=== PATIENT | female | born 1960 | race Caucasian/White ===

== ENCOUNTER 2017-02-28 11:11 | Inpatient (IN) | payer SELFPAY ==
[~2017-02-28] VITALS: Ht 167.6 cm; Wt 91.8 kg
[2017-02-28 12:11] LABS: CALCIUM 9.4 mg/dL (8.5-10.1); CARBON DIOXIDE 25.6 mmol/L (21-32); CREATININE SERUM 1.2 mg/dL (0.6-1.0); POTASSIUM SERUM 4.2 mmol/L (3.5-5.1)
[2017-02-28 12:15] LABS: ALBUMIN 3.8 g/dL (3.4-5.0); BILIRUBIN TOTAL 0.79 mg/dL (0.20-1.00); TOTAL PROTEIN, SERUM 7.6 g/dL (6.4-8.2)
[2017-02-28 12:29] LABS: BASOPHIL % 0.4 % (0-2); PLATELET COUNT 184 x10^3mcL (130-400); RED CELL DISTRIBUTION WIDTH 13.1 % (11.5-14.5)
[2017-02-28 14:54] LABS: MAGNESIUM 2.3 mg/dL (1.8-2.4)
[2017-02-28 14:56] LABS: CHOLESTEROL/HDL RATIO 2.5
[2017-02-28 15:03] LABS: T3 TOTAL 1.21 ng/mL
[2017-02-28 15:08] LABS: FREE T4 0.86 ng/dL (0.76-1.46); FREE THYROXINE INDEX 2.5 ug/dL (1.4-4.5); T4(THYROXINE) 7.8 ug/dL (4.7-13.3)
[2017-02-28 16:05] VITALS: BP 125/74
[2017-02-28 17:33] LABS: microscopic required? YES; urine erythrocyte 1+ (NEGATIVE)
[2017-02-28 17:49] LABS: AMPHETAMINE QUAL UR NONE DETECTED (NEG <=1000)
[2017-02-28] MEDS ORDERED: HCTZ/LISINOPRIL1 TAB PO (17:53)
[2017-02-28] MEDS ORDERED: SIMVASTATIN20 M1 PO (17:53)
[2017-02-28 20:43] VITALS: BP 111/62
[2017-03-01 05:38] VITALS: BP 103/73
[2017-03-01 06:30] LABS: CARBON DIOXIDE 26.8 mmol/L (21-32); CHLORIDE SERUM 108 mmol/L (98-107); CREATININE SERUM 0.8 mg/dL (0.6-1.0); GFR1 > 60 mL/min; GLUCOSE SERUM 91 mg/dL (74-106); POTASSIUM SERUM 3.6 mmol/L (3.5-5.1); SODIUM SERUM 142 mmol/L (136-145)
[2017-03-01 06:37] LABS: PLATELET COUNT 141 x10^3mcL (130-400); RED CELL DISTRIBUTION WIDTH 13.4 % (11.5-14.5)
[2017-03-01 06:57] LABS: BASOPHIL % 0 % (0-2)
[2017-03-01 09:21] VITALS: BP 110/59
[2017-03-01 13:56] VITALS: BP 122/61
[2017-03-01 17:09] VITALS: BP 107/57
[2017-03-01 19:30] VITALS: BP 104/62
[2017-03-02 06:32] VITALS: BP 114/67
[2017-03-02 06:33] VITALS: BP 114/67
[2017-03-02 09:31] VITALS: BP 116/60
[2017-03-02] MEDS ORDERED: ASPIR 8181 MG PO ×2 (11:18→12:26)
[2017-03-02 11:44] VITALS: BP 116/60
== END 2017-03-02 13:45 | disposition home or self-care (01) | DRG 393 ==
LOC: ED 11:11 → DU 13:52 → MU 03-02 06:57
PROVIDERS: Emergency Medicine; Internal Medicine Gastroenterology; ADMIT Family Medicine
PROC: 0DB78ZX Excision of Stomach, Pylorus, Via Natural or Artificial Opening Endoscopic, Diagnostic (ICD-10-PCS; principal; 2017-03-01 14:00)
PROC: 0DBG8ZX Excision of Left Large Intestine, Via Natural or Artificial Opening Endoscopic, Diagnostic (ICD-10-PCS; 2017-03-01 14:00)
DX: K55.9 Vascular disorder of intestine, unspecified (principal); N17.0 Acute kidney failure with tubular necrosis; E87.2 Acidosis; I10 Essential (primary) hypertension; E78.00 Pure hypercholesterolemia, unspecified; R19.09 Other intra-abdominal and pelvic swelling, mass and lump; Z53.29 Procedure and treatment not carried out because of patient's decision for other reasons; E66.9 Obesity, unspecified; D25.9 Leiomyoma of uterus, unspecified; K76.89 Other specified diseases of liver; E78.5 Hyperlipidemia, unspecified; Z90.49 Acquired absence of other specified parts of digestive tract; Z88.1 Allergy status to other antibiotic agents; Z90.89 Acquired absence of other organs; Z79.899 Other long term (current) drug therapy; Z83.3 Family history of diabetes mellitus; Z82.49 Family history of ischemic heart disease and other diseases of the circulatory system; Z80.9 Family history of malignant neoplasm, unspecified
CPT/HCPCS: 43235; 45378; 80307; 83880; 84439; 87046; 87046-59; J1200; J1610; J2250; J2310; J2405; J2543; J2765; J3010; J3490; J7030; Q0092